=== PATIENT | female | born 1970 | race Caucasian/White ===

== ENCOUNTER → 2016-07-21 | Outpatient (CLI) | payer MEDICAID ==
[~2016-07-21] MED LIST: AMBIEN 5MG TAB5 MG PO; AMITRIPTYLINE 225 MG PO; FIORICET1 CAP PO; LEXAPRO 10 MG T10 MG PO; LISINOPRIL 10MG10 MG PO; PERCOCET 325 MG1 TA4 PO
[2016-07-21 21:05] LABS: AMPHETAMINES/METAMPHETAMINES NEGATIVE ng/mL (<1000)
[2016-07-29 09:38] LABS: Opiates Negative (Cutoff=100)
== END ==
LOC: LAB 16:24
PROVIDERS: Emergency Medicine
DX: Z79.899 Other long term (current) drug therapy (principal)

== ENCOUNTER → 2016-07-23 | Outpatient (CLI) | payer MEDICAID ==
--- NOTE | 2016-07-23 14:25 | RADIOLOGY REPORT PS360 ---
US PELVIS-TRANSVAGINAL ONLY HISTORY: Right lower quadrant pain PELVIC PAIN, ORDERING PHYSICIAN: Michele Dubois MD PATIENT AGE: 46 years COMPARISON: None FINDINGS: There has been a prior total abdominal hysterectomy. There is mild residual post void urine within the bladder estimated at 34 mL's. Small focal area of increased echogenicity is present at the cervical region. Etiology is indeterminate. No free fluid is evident. No obvious mass. IMPRESSION: 1. Mild amount of post port residual urine. 2. Status post hysterectomy and bilateral oophorectomy. Small echogenic focus in the cervical region of questionable clinical significance otherwise negative
== END ==
LOC: RAD 09:18
DX: R10.2 Pelvic and perineal pain (principal); N73.6 Female pelvic peritoneal adhesions (postinfective); N95.2 Postmenopausal atrophic vaginitis

== ENCOUNTER 2016-07-27 09:02 | Day surgery (SDC) | payer MEDICAID ==
[~2016-07-27] VITALS: Ht 162.6 cm; Wt 56.2 kg
[~2016-07-27 09:02] MED LIST changes: -AMITRIPTYLINE 225 MG PO; -LISINOPRIL 10MG10 MG PO
[2016-07-27 09:21] VITALS: BP 109/68
[2016-07-27] MEDS ORDERED: LISINOPRIL 10MG10 MG PO (09:23)
[2016-07-27 09:36] VITALS: BP 109/68
[2016-07-27 09:37] VITALS: BP 107/59
--- NOTE | 2016-07-27 09:47 | Procedure Note ---
Procedure detail Date of procedure: 07/27/16 Anesthesiologist: Manolo foster CRNA Complications: None Pre-procedure diagnosis: Bilateral sacroiliitis. Post-procedure diagnosis: Same. Indications for procedure: Very pleasant 46-year-old white female that recently came to our pain clinic for initial consultation regarding chronic bilateral hip pain that she describes as constant, dull, sharp, stabbing. Patient reports pain intensifies when standing from a sitting position. She has extreme point tenderness over the bilateral SI joints. Also, patient complains of chronic headaches. She describes the headaches as constant, sharp, dull, stabbing at times. Patient has extreme tenderness over the occipital nerve bilaterally. I discussed in detail with the patient regarding bilateral occipital nerve blocks. Patient would like to start with a bilateral SI joint injections. Patient status post lumbar discectomy followed by lumbar fusion. Patient presents today for bilateral SI joint injections. Procedure detail: Procedure: Bilateral sacroiliac joint injections under fluoroscopy Informed consent was obtained and the risks and benefits of the procedure were explained to the patient.~ The patient was taken to the procedure room and noninvasive monitors were placed including a noninvasive blood pressure cuff and pulse oximeter.~ The patient was placed prone on the procedure table. Both hips were cleansed using Betadine as a cleansing solution. C-arm fluoroscopy was used to view the right sacroiliac joint.~ The skin and subcutaneous tissues were anesthetized using lidocaine 1.5% and a 25-gauge needle.~ After this, a 22-gauge spinal needle was inserted under fluoroscopic guidance into the inferior aspect of the right sacroiliac joint.~ Omnipaque dye was injected and good spread was seen throughout the joint.~ After this, approximately 5 mL of bupivacaine, 0.25% and Depo-Medrol, 40 mg was incrementally injected into the right sacroiliac joint. We then moved to the left sacroiliac joint.~ The skin and subcutaneous tissues were anesthetized using lidocaine 1.5% and a 25-gauge needle.~ After this, a 22- gauge spinal needle was inserted under fluoroscopic guidance into the inferior aspect of the left sacroiliac joint.~ Omnipaque dye was injected and good spread was seen throughout the joint. After this, approximately 5 mL of bupivacaine, 0.25% and Depo-Medrol, 40 mg was incrementally injected into the left sacroiliac joint.~ The patient tolerated the procedure well with no complications. The patient was observed in the Pain Clinic and then was discharged home neurologically intact. Plan and disposition: Patient was reevaluated 10 minutes post procedure. Patient reports 90 percent improvement terms of her bilateral hip pain in sitting, standing, ambulating. Patient follow up with some pain clinic for further evaluation. at [id number]
[2016-07-27 09:56] VITALS: BP 107/71
[2016-08-16] MEDS ORDERED: AMITRIPTYLINE 225 MG PO (12:09)
== END 2016-07-27 09:57 | disposition home or self-care (01) ==
LOC: PM 09:02
PROC: 3E0U33Z Introduction of Anti-inflammatory into Joints, Percutaneous Approach (ICD-10-PCS; principal; 2016-07-27)
PROC: 3E0U3BZ Introduction of Anesthetic Agent into Joints, Percutaneous Approach (ICD-10-PCS; 2016-07-27)
DX: M46.1 Sacroiliitis, not elsewhere classified (principal)
CPT/HCPCS: G0260; J1040

== ENCOUNTER → 2016-12-14 | Outpatient (CLI) | payer OTHER, MEDICAID ==
[~2016-12-14] MED LIST changes: +AMITRIPTYLINE 225 MG PO; +ESTROGEN; +LISINOPRIL 10MG10 MG PO
[2016-12-14 21:18] LABS: AMPHETAMINES/METAMPHETAMINES NEGATIVE ng/mL (<1000)
[2016-12-20 16:40] LABS: Opiates Negative (Cutoff=100)
== END ==
LOC: LAB 18:05
PROVIDERS: Emergency Medicine
DX: Z79.899 Other long term (current) drug therapy (principal)

== ENCOUNTER → 2017-01-12 | Outpatient (CLI) | payer OTHER, MEDICAID ==
[2017-01-12 16:52] LABS: AMPHETAMINES/METAMPHETAMINES NEGATIVE ng/mL (<1000)
[2017-01-19 10:40] LABS: Opiates Negative (Cutoff=100)
== END ==
LOC: LAB 16:27
PROVIDERS: Emergency Medicine
DX: Z79.899 Other long term (current) drug therapy (principal)

== ENCOUNTER → 2017-02-09 | Outpatient (CLI) | payer OTHER, MEDICAID ==
[2017-02-09 14:44] LABS: HEMOGLOBIN 13.2 g/dL (12.2-16.2); LYMPH # 4.1 K/mm3 (0.7-4.5); LYMPH % 47.7 % (10-50.0)
[2017-02-09 16:51] LABS: BUN 19 mg/dL (7-18)
[2017-02-09 16:53] LABS: GFR (ESTIMATED) 59 ML/MIN (59-)
[2017-02-09 17:08] LABS: AMPHETAMINES/METAMPHETAMINES NEGATIVE ng/mL (<1000)
[2017-02-19 06:37] LABS: Opiates Negative (Cutoff=100)
== END ==
LOC: LAB 14:24
PROVIDERS: Emergency Medicine
DX: Z79.899 Other long term (current) drug therapy (principal)

== ENCOUNTER → 2017-02-18 | Outpatient (CLI) | payer OTHER, MEDICAID ==
--- NOTE | 2017-02-20 09:09 | RADIOLOGY REPORT PS360 ---
CT SINUS (MAX-FACIAL W/O CONT) CLINICAL INDICATION: CHRONIC ETHMOIDAL SINUSITIS,DEVIATED SEPTUM ORDERING PHYSICIAN: Sudarshan Nolasco MD PATIENT AGE: 46 years COMPARISON: None TECHNIQUE:Axial, sagittal, and coronal images are generated and reviewed without contrast The frontal sinuses have an unremarkable appearance. There is opacified right posterior ethmoid air cell with minimal mucosal thickening also noted of the anterior ethmoids on the right. Sphenoid and maxillary sinuses are unremarkable. No mastoid effusion. There is mild rightward nasal septal deviation anteriorly with moderate narrowing of the right nasal canal. There is mild leftward nasal septal deviation posteriorly. The ostiomeatal complexes are patent. No sinus air-fluid level. Unremarkable temporomandibular joints. The orbits have an unremarkable appearance. IMPRESSION: 1. Ethmoid sinus disease with near complete opacification of posterior ethmoid air cell. 2. Moderate rightward nasal septal deviation anteriorly with moderate narrowing of the right nasal canal
== END ==
LOC: RAD 15:00
DX: J32.2 Chronic ethmoidal sinusitis (principal); J34.2 Deviated nasal septum

== ENCOUNTER → 2017-04-06 | Outpatient (CLI) | payer OTHER, MEDICAID ==
[2017-04-06 16:35] LABS: AMPHETAMINES/METAMPHETAMINES NEGATIVE ng/mL (<1000)
[2017-04-12 18:36] LABS: Opiates Negative (Cutoff=100)
== END ==
LOC: LAB 15:39
PROVIDERS: Emergency Medicine
DX: Z79.899 Other long term (current) drug therapy (principal)

== ENCOUNTER → 2017-04-21 | Outpatient (CLI) | payer OTHER, MEDICAID ==
[2017-04-21 14:32] LABS: AMPHETAMINES/METAMPHETAMINES NEGATIVE ng/mL (<1000)
== END ==
LOC: LAB 11:57
PROVIDERS: Emergency Medicine
DX: Z79.899 Other long term (current) drug therapy (principal)